=== PATIENT | male | born 1970 | race Caucasian/White ===

== ENCOUNTER 2020-02-02 08:38 | Emergency (ER) | payer MEDICARE, MEDICAID ==
[~2020-02-02] VITALS: Ht 185.4 cm; Wt 84.5 kg
[2020-02-02 11:02] VITALS: BP 134/79
== END 2020-02-02 10:30 | disposition home or self-care (01) ==
LOC: ER 08:38
DX: B33.8 Other specified viral diseases (principal); R50.9 Fever, unspecified
CPT/HCPCS: 36415; 87502; 87503; 99283